=== PATIENT | male | born 1960 | race African-American/Black ===

== ENCOUNTER 2019-10-08 16:35 | Emergency (ER) | payer OTHER ==
[~2019-10-08] VITALS: Ht 175.3 cm; Wt 106.8 kg
[2019-10-08] MEDS ORDERED: [UNRECOGNIZED DRUG - CODE] ITH (16:53)
[2019-10-08] MEDS ORDERED: ASPI81TA39 PO (16:53)
[2019-10-08] MEDS ORDERED: LOSA25TA71 PO (16:53)
[2019-10-08] MEDS ORDERED: ACETAMINOPHEN 500 MG TABLET PO ONE (17:00)
[2019-10-08] MEDS ORDERED: BACLOFEN 10 MG TABLET PO ONE (17:00)
[2019-10-08] MEDS ORDERED: BACL10TA PO (17:04)
[2019-10-08 17:10] LABS: GLUCOSE,POINT OF CARE 126 MG/DL (70-110)
[2019-10-08 17:46] VITALS: BP 157/93
== END 2019-10-08 17:12 | disposition home or self-care (01) ==
LOC: EMS 16:35
DX: I10 Essential (primary) hypertension (principal); M54.5 Low back pain; G89.29 Other chronic pain; M25.569 Pain in unspecified knee; M25.519 Pain in unspecified shoulder